=== PATIENT | female | born 1970 | race African-American/Black ===

== ENCOUNTER 2016-08-05 15:52 | Emergency (ER) | payer MEDICARE, OTHER ==
--- NOTE | 2016-08-05 16:21 | PHYS DOC ---
General Chief Complaint: COUGH Stated Complaint: COUGH Time Seen by MD: 15:58 Source: patient Exam Limitations: no limitations Problems: History of Present Illness Initial Comments Pt is 46/F to ED c/o fever and cough. Pt has h/o asthma uses albuterol MDI prn, states for the past 4 days she's had subjective fever, ELIZALDE, myalgias, dry cough, and congestion. Past few days she's had some loose stools as well, no abdominal pain or n/v. No travel/bad food exposure, pt saw her doctor yesterday and advised viral infection which must run its course. Pt states cough kept her up all night, she's hoping for some relief. No cp/focal neurodef/melena/hematochezia. Timing/Duration: getting worse (4 days) Severity: moderate Modifying Factors: improves with medication, worse with movement, improves with rest Associated Symptoms: cough, diaphoresis, fever/chills, headaches, malaise, shortness of breath, other Allergies: Coded Allergies: No Known Drug Allergies (Unverified , 08/05/16) Past Medical History Medical History: other (thyroid, asthma) Surgical History: noncontributory Social History Smoker: non-smoker Alcohol: none Drugs: none Review of Systems Constitutional: see HPI Respiratory: see HPI Cardiovascular: denies chest pain, denies palpitations, denies syncope Gastrointestinal: denies abdominal pain, denies constipation, diarrheadenies nausea, denies vomiting Genitourinary: denies dysuria, denies frequency, denies hematuria Musculoskeletal: denies back pain, denies joint swelling, denies neck pain Psychiatric/Neurological: headachedenies numbness, denies paresthesia, denies weakness Hematologic/Lymphatic: denies blood clots, denies easy bleeding, denies easy bruising Physical Exam General Appearance: no apparent distress, obese Eyes: bilateral eye EOMI, bilateral eye PERRL, bilateral eye normal inspection Ear, Nose, Throat: hearing grossly normal, normal ENT inspection (nose w/ yellow disch, yellow PND), normal pharynx Neck: non-tender, supple Respiratory: chest non-tender, no respiratory distress, decreased breath sounds , other (faint wheeze) Cardiovascular: normal peripheral pulses, regular rate, rhythm Back: no CVA tenderness, no vertebral tenderness Extremities: non-tender, normal inspection, no pedal edema Neurologic/Psychiatric: change of address clerk II-XII nml as tested, no motor/sensory deficits, alert, normal mood/affect, oriented x 3 Skin: normal color, warm/dry Orders, Labs, Meds PATIENT: ANJELICA MCCULLOUGH ACCOUNT: [id number] : 1970 LOCATION: ER AGE: 46 SEX: F EXAM STATUS: REG ER ORD. PHYSICIAN: CANDIS RG DO REASON: fever/cough X'S 4 DAYS PROCEDURE: CHEST PA & LATERAL Chest, 2 views, 08/05/2016: History: Cough, shortness of breath Comparison is made to a study from 03/08/2008. The heart size and pulmonary vascularity are normal. There are multiple calcified mediastinal and left hilar lymph nodes. No pulmonary infiltrate is seen. There is no evidence of pleural fluid. Mild spurring is present in the spine. IMPRESSION: No acute cardiopulmonary abnormality is detected. DICTATED AND SIGNED BY: JARROD CROCKER MD DATE: 08/05/16 1645 CC: CANDIS RG DO; TIESHA GALVAN MD ~ Reassuring workup in ED, pt breathing much better after neb/steroids. Air movement much better, diffuse wheeze. Departure Time of Disposition: 17:25 Disposition: 01 HOME, SELF-CARE Diagnosis: Bronchitis with bronchospasm, asthma Condition: IMPROVED Patient Instructions: Acute Bronchitis, [id number], Asthma, Adult, Easy-to- Read Additional Instructions: Rest, no strenuous activity. Aggressive hydration with gatorade, water. OTC tylenol as needed. Rx: zithromax, prednisone, albuterol, guaif/cod Follow up with your doctor Wednesday for recheck. Return to ED with new or changing symptoms. CANDIS RG DO Aug 05, 2016 16:21
[2016-08-05] MEDS ORDERED: methylPREDNISolone SOD SUCC PF 125 MG/2 ML VIAL. IM ONE (16:30)
[2016-08-05] MEDS ORDERED: IPRATRPIUM/ALBUTEROL 0.5/2.5MG 3 ML NEBU. NEB ONE (16:30)
--- NOTE | 2016-08-05 16:49 | RAD ---
Chest, 2 views, 08/05/2016: History: Cough, shortness of breath Comparison is made to a study from 03/08/2008. The heart size and pulmonary vascularity are normal. There are multiple calcified mediastinal and left hilar lymph nodes. No pulmonary infiltrate is seen. There is no evidence of pleural fluid. Mild spurring is present in the spine. IMPRESSION: No acute cardiopulmonary abnormality is detected.
[2016-08-05] MEDS ORDERED: methylPREDNISolone SOD SUCC PF 125 MG/2 ML VIAL. IV ONE (17:00)
[2016-08-05 17:15] LABS: INFLUENZA A PATIENT NEGATIVE (NEGATIVE); INFLUENZA B PATIENT NEGATIVE (NEGATIVE)
[2016-08-05] MEDS ORDERED: GUAI118L13 PO (17:24)
[2016-08-05] MEDS ORDERED: AZIT250T PO (17:24)
[2016-08-05] MEDS ORDERED: ALBU18HF IH (17:24)
[2016-08-05] MEDS ORDERED: PRED20TA PO (17:24)
[2016-08-05 17:40] VITALS: BP 149/92
== END 2016-08-05 17:40 | disposition home or self-care (01) ==
LOC: ER 15:52
DX: J20.9 Acute bronchitis, unspecified (principal); J45.909 Unspecified asthma, uncomplicated
CPT/HCPCS: 71020; 82947; 87804; 94640; 96374; 99285; J2930; J7620

== ENCOUNTER 2017-01-12 22:17 | Emergency (ER) | payer MEDICARE, OTHER ==
[~2017-01-12] VITALS: Ht 162.6 cm; Wt 123.0 kg
[~2017-01-12 22:17] MED LIST: ALBU18HF IH; AZIT250T PO; GUAI118L13 PO; PRED20TA PO
[2017-01-13 01:09] LABS: CALCIUM 8.9 mg/dL (8.5-10.1); CREATININE 1.1 mg/dL (0.6-1.0); GFR 64.4; POTASSIUM 3.7 mmol/L (3.5-5.1)
[2017-01-13] MEDS ORDERED: HYDROcodone/APAP 5/325MG 1 TAB TABLET PO ONE (01:30)
--- NOTE | 2017-01-13 02:17 | RAD ---
INDICATION: Leg swelling COMPARISON: None. TECHNIQUE: Grayscale, color and doppler ultrasound images were obtained of the right lower extremity venous vasculature. RIGHT: No thrombus identified in the common femoral vein, femoral vein, popliteal vein or visualized calf veins. IMPRESSION: 1. No thrombus identified in deep venous system of right lower extremity. Electronically signed by: Brandon Bentley MD (01/13/2017 2:14 AM) [facility]
[2017-01-13] MEDS ORDERED: HYDR-971 PO (02:59)
--- NOTE | 2017-01-13 02:59 | PHYS DOC ---
Past History Past Medical History: Asthma, Diabetes, Other Past Surgical History: Hysterectomy, Knee Replacement Alcohol Use: Occasionally Drug Use: None Adult General Chief Complaint Chief Complaint: LOWER EXT PAIN HPI HPI Patient is a 46 year old female who presents with right leg pain. The patient reports 2 day history of right calf pain & swelling. Pain worse with ambulation. She denies fevers/chills, rash/skin changes, chest pain, shortness of breath. Denies history of trauma. She has no recent travel, immobilization , surgery. She is a nonsmoker, denies use of hormones. No history of DVT/PE. She does have history of knee replacement. Review of Systems Review of Systems Constitutional: Denies fever or chills HENT: Denies nasal congestion or sore throat Respiratory: Denies cough or shortness of breath Cardiovascular: Denies chest pain GI: Denies abdominal pain, nausea, vomiting Musculoskeletal: Reports calf pain Integument: Denies rash Neurologic: Denies headache Current Medications Current Medications Current Medications Medications (Trade) Dose Ordered Sig/Kennedi Start Time Stop Time Status Last Admin Dose Admin Acetaminophen/ Hydrocodone Bitart (Lortab 5/325) 2 tab 1X ONCE 01/13/17 01:30 01/13/17 01:31 DC 01/13/17 01:30 2 TAB Allergies Allergies Allergies Coded Allergies Type Severity Reaction Last Updated Verified No Known Drug Allergies 08/05/16 No Physical Exam Physical Exam Constitutional: obese, no acute distress, non-toxic appearance. HENT: Normocephalic, atraumatic, bilateral external ears normal, oropharynx moist, nose normal. Eyes: conjunctiva normal, no discharge. Cardiovascular: no edema. Lungs & Thorax: no respiratory distress. Abdomen: nondistended. Skin: Warm, dry, no erythema, no rash. Extremities: right calf tenderness without obvious asymmetrical swelling, no erythema or warmth, dp/pt 2+, sensation intact to foot. no knee or ankle tenderness. Neurologic: Alert and oriented X 3 Current Patient Data Lab Results Laboratory Tests Test 01/13/17 00:20 Sodium Level 142 mmol/L (136-145) Potassium Level 3.7 mmol/L (3.5-5.1) Chloride Level 107 mmol/L (98-107) Carbon Dioxide Level 28 mmol/L (21-32) Anion Gap 7 (6-14) Blood Urea Nitrogen 15 mg/dL (7-20) Creatinine 1.1 mg/dL (0.6-1.0) H Estimated GFR (Cockcroft-Gault) 64.4 Glucose Level 96 mg/dL (70-99) Calcium Level 8.9 mg/dL (8.5-10.1) EKG EKG [] Radiology/Procedures Radiology/Procedures PROCEDURE: VENOUS LOWER EXTREMITY RIGHT INDICATION: Leg swelling COMPARISON: None. TECHNIQUE: Grayscale, color and doppler ultrasound images were obtained of the right lower extremity venous vasculature. RIGHT: No thrombus identified in the common femoral vein, femoral vein, popliteal vein or visualized calf veins. IMPRESSION: 1. No thrombus identified in deep venous system of right lower extremity. Electronically signed by: Lu Bentley MD (01/13/2017 2:14 AM) [facility] DICTATED AND SIGNED BY: LU BENTLEY MD DATE: 01/13/17 0213 [] Course & Med Decision Making Course & Med Decision Making Pertinent Labs and Imaging studies reviewed. (See chart for details) The patient presents with calf pain. Obtained venous US of the affected leg with no evidence of DVT. Electrolytes within normal limits. Recommend rest, heat, ibuprofen. Follow up with primary care physician if not improving in 2-3 days. Come back for chest pain, shortness of breath, cellulitis changes, any otherwise worsening condition. Discharged home in stable condition. [] Dragon Disclaimer Dragon Disclaimer This chart was dictated in whole or in part using Voice Recognition software in a busy, high-work load, and often noisy Emergency Department environment. It may contain unintended and wholly unrecognized errors or omissions. Departure Departure: Impression: Primary Impression: Leg cramps Disposition: 01 HOME, SELF-CARE Condition: STABLE Referrals: KIKE GALINDO MD (PCP) Patient Instructions: Leg Cramps Additional Instructions: You were seen in the emergency department today for leg pain. You do not have a blood clot on the ultrasound test. This may just be muscle cramps. Her electrolytes were normal. Please rest, try to do gentle stretches, apply heating pad, take ibuprofen. If you have severe pain he can take [place]. No drinking alcohol or driving while taking this medication. Call your doctor's office in the morning as they may recommend discontinuing your cholesterol medication. Come back for severe shortness of breath or chest pain, any otherwise worsening condition. Scripts Hydrocodone Bit/Acetaminophen (NORCO 5-325 TABLET) 1 Each Tablet 1-2 TAB PO Q4-6HRS Y for SEVERE PAIN, #6 TAB Prov: WES FARRAR MD 01/13/17 WES FARRAR MD Jan 13, 2017 02:59
[2017-01-13 03:00] VITALS: BP 132/84
--- NOTE | 2017-01-13 04:29 | EKG ---
[address] [address] Test Date: 2017-01-13 Test Time: 00:27:56 Pat Name: ANJELICA MCCULLOUGH Department: Room: Gender: F Delivery Truck Driver: : 1970 Requested By: WES FARRAR Order Number: [id number] Reading MD: Anthony Guido Measurements Intervals [place] Rate: 75 P: 41 SD: 218 QRS: 52 QRSD: 90 T: 24 QT: 380 QTc: 427 Interpretive Statements SINUS RHYTHM PROLONGED SD INTERVAL Electronically Signed On 01-13-2017 11:55:25 CDT by Anthony Guido
== END 2017-01-13 03:10 | disposition home or self-care (01) ==
LOC: ER 22:17
DX: R25.2 Cramp and spasm (principal); M79.604 Pain in right leg; J45.909 Unspecified asthma, uncomplicated; E11.9 Type 2 diabetes mellitus without complications
CPT/HCPCS: 36415; 80048; 93005; 93971; 99285-25

== ENCOUNTER 2018-05-14 13:56 | Emergency (ER) | payer OTHER ==
[~2018-05-14] VITALS: Ht 162.6 cm; Wt 123.0 kg
[~2018-05-14 13:56] MED LIST changes: -ALBU18HF IH; +ALBU2.5V8 IH; +HYDR-3165 PO
[2018-05-14 14:03] VITALS: BP 122/88
[2018-05-14] MEDS ORDERED: ACET-704 PO (14:38)
--- NOTE | 2018-05-14 14:38 | PHYS DOC ---
Past History Past Medical History: Anxiety, Asthma, Diabetes, High Cholesterol, Other Past Surgical History: Hysterectomy, Knee Replacement, Tonsillectomy Alcohol Use: None Drug Use: None Adult General Chief Complaint Chief Complaint: ANKLE PROBLEM HPI HPI Patient is a 48 year old female who presents with complaining of right ankle pain and swelling for 3 weeks that getting worse today. Patient denies injury and states his pain getting force with bearing weight. Patient did not have history of DVT and recent immobilization. Patient states he was seen by his doctor 1 month ago and labs and doesn't want to have any lab tests regarding CHF or DVT and only wants x-ray to make sure she doesn't have fracture. Review of Systems Review of Systems Constitutional: Denies fever or chills [] Eyes: Denies change in visual acuity, redness, or eye pain [] HENT: Denies nasal congestion or sore throat [] Respiratory: Denies cough or shortness of breath [] Cardiovascular: No additional information not addressed in HPI [] GI: Denies abdominal pain, nausea, vomiting, bloody stools or diarrhea [] : Denies dysuria or hematuria [] Musculoskeletal: Denies back pain, reports joint pain [] Integument: Denies rash or skin lesions [] Neurologic: Denies headache, focal weakness or sensory changes [] Endocrine: Denies polyuria or polydipsia [] All other systems were reviewed and found to be within normal limits, except as documented in this note. Allergies Allergies Allergies Coded Allergies Type Severity Reaction Last Updated Verified No Known Drug Allergies 08/05/16 No Physical Exam Physical Exam Constitutional: Well developed, well nourished, no acute distress, non-toxic appearance. [] HENT: Normocephalic, atraumatic Eyes: PERRLA, EOMI, conjunctiva normal, no discharge. [] Neck: Normal range of motion, no tenderness, supple, no stridor. [] Cardiovascular:Heart rate regular rhythm, no murmur [] Lungs & Thorax: Bilateral breath sounds clear to auscultation [] Skin: Warm, dry, no erythema, no rash. [] Back: No tenderness, no CVA tenderness. [] Extremities: Right ankle with mild edema in lateral malleolus without deformity , no calf tenderness or edema or sign of infection Neurologic: Alert and oriented X 3, normal motor function, normal sensory function, no focal deficits noted. [] Psychologic: Affect normal, judgement normal, mood normal. [] Current Patient Data Vital Signs Vital Signs Date Time Temp Pulse Resp B/P (MAP) Pulse Ox O2 Delivery O2 Flow Rate FiO2 05/14/18 14:03 Room Air 05/14/18 14:03 98.1 99 20 96 EKG EKG [] Radiology/Procedures Radiology/[place] [address] IMAGING REPORT Signed PATIENT: ANJELICA MCCULLOUGH ACCOUNT: [id number] : 1970 LOCATION: ER AGE: 48 SEX: F EXAM STATUS: REG ER ORD. PHYSICIAN: DANIELLE MEYER MD REASON: pain PROCEDURE: ANKLE RIGHT 3V EXAM: RIGHT ANKLE 3 VIEWS. HISTORY: Right ankle pain and swelling COMPARISON: None. FINDINGS: Three views of the right ankle are obtained. No acute fractures are identified. There are changes of chronic ligamentous injury at that the tip of the medial malleolus. There is soft tissue swelling laterally greater than anteriorly. There are small plantar and posterior calcaneal spurs. Alignment is normal. Joint spaces are maintained. IMPRESSION: 1. Lateral soft tissue swelling. No fracture. Electronically signed by: Ruddy Reid MD (05/14/2018 3:05 PM) [facility] [place] DICTATED AND SIGNED BY: CARRIE REID MD DATE: 05/14/18 1504 CC: KIKE GALINDO MD; DANIELLE MEYER MD ~ Course & Med Decision Making Course & Med Decision Making Pertinent Imaging studies reviewed. (See chart for details) discharge: I've spoken with the patient and/or caregivers. I've explained the patient's condition, diagnosis and treatment plan based on information available to me at this time. I've answered the patient's and/or caregivers questions and addressed any concerns. The patient and/or caregivers have a good understanding the patient's diagnosis, condition and treatment plan as can be expected at this point. Vital signs have been stabilized. The patient's condition is stable for discharge from the emergency department. The patient will pursue further outpatient evaluation with her primary care provider or other designated consulting physician as outlined in the discharge instructions. Patient and/or caregivers are agreeable to this plan of care and follow-up instructions have been explained in detail. The patient and/or caregivers have received these instructions in written format and expressed understanding of these discharge instructions. The patient and her caregivers are aware that if any significant change in condition or worsening of symptoms should prompt him to immediately return to this of the closest emergency department. If an emergent department is not readily available I would encourage him to call 911. Dragon Disclaimer Dragon Disclaimer This electronic medical record was generated, in whole or in part, using a voice recognition dictation system. Departure Departure: Impression: Primary Impression: Ankle pain, right Disposition: HOME, SELF-CARE (at 1435) Condition: STABLE Referrals: KIKE GALINDO MD (PCP) Patient Instructions: Ankle Pain Additional Instructions: Apply ice on affected area Follow-up with your primary care physician in 3-5 days Return to ER if not getting better Scripts Acetaminophen With Codeine (TYLENOL WITH CODEINE #3 TABLET) 1 Each Tablet 1 TAB PO Q6HRS PRN for PAIN, #12 TAB Prov: DANIELLE MEYER MD 05/14/18 DANIELLE MEYER MD May 14, 2018 14:38
--- NOTE | 2018-05-14 15:09 | RAD ---
EXAM: RIGHT ANKLE 3 VIEWS. HISTORY: Right ankle pain and swelling COMPARISON: None. FINDINGS: Three views of the right ankle are obtained. No acute fractures are identified. There are changes of chronic ligamentous injury at that the tip of the medial malleolus. There is soft tissue swelling laterally greater than anteriorly. There are small plantar and posterior calcaneal spurs. Alignment is normal. Joint spaces are maintained. IMPRESSION: 1. Lateral soft tissue swelling. No fracture. Electronically signed by: Ruddy Reid MD (05/14/2018 3:05 PM) [facility] [place]
== END 2018-05-14 14:45 | disposition home or self-care (01) ==
LOC: ER 13:56
DX: M25.571 Pain in right ankle and joints of right foot (principal); R22.41 Localized swelling, mass and lump, right lower limb; F41.9 Anxiety disorder, unspecified; J45.909 Unspecified asthma, uncomplicated; E11.9 Type 2 diabetes mellitus without complications; E78.00 Pure hypercholesterolemia, unspecified; Z96.659 Presence of unspecified artificial knee joint
CPT/HCPCS: 73610; 99283

== ENCOUNTER 2020-01-15 21:02 | Emergency (ER) | payer OTHER, MEDICAID ==
[~2020-01-15] VITALS: Ht 162.6 cm; Wt 134.0 kg
[~2020-01-15 21:02] MED LIST changes: +ACET-704 PO
[2020-01-15] MEDS ORDERED: LIDOCAINE/PRILOCAINE TOPICAL CREAM 5GM TUBE. TP ONE (21:30)
[2020-01-15] MEDS ORDERED: SMZ/TMP 800/160MG TABLET. PO ONE (22:45)
[2020-01-15] MEDS ORDERED: SULF1TAB24 PO (22:55)
--- NOTE | 2020-01-15 22:56 | PHYS DOC ---
Past History Past Medical History: Anxiety, Asthma, Diabetes, High Cholesterol, Other Past Surgical History: Hysterectomy, Knee Replacement, Tonsillectomy Alcohol Use: None Drug Use: None Adult General Chief Complaint Chief Complaint: SKIN RASH/ABSCESS HPI HPI Patient is a 49-year-old female who presents for right posterior ear abscess. Onset was 1 week ago without any known inciting event or trauma. Nothing known makes better, palpation and manipulation of your make worse. Patient reports dull nonradiating pain behind posterior earlobe that is tender to palpation. Admits history of abscesses in the past but not at this location, no history of MRSA infection. Patient has been applying topical lotions and antibiotic creams without any relief, denies any expressible exudate or drainage. No fever, COVID-19 symptoms, or other constitutional symptoms Review of Systems Review of Systems Fourteen body systems of review of systems have been reviewed. See HPI for pertinent positives and negative responses, other llanes all other systems are negative, non-pertinent or non-contributory Current Medications Current Medications Current Medications Medications (Trade) Dose Ordered Sig/Kennedi Start Time Stop Time Status Last Admin Dose Admin Lidocaine/ Prilocaine (Emla) 1 mark 1X ONCE 01/15/20 21:30 01/15/20 21:31 DC 01/15/20 21:25 1 MARK Trimethoprim/ Sulfamethoxazole (Bactrim Ds) 1 tab 1X ONCE 01/15/20 22:45 01/15/20 22:46 DC Allergies Allergies Allergies Coded Allergies Type Severity Reaction Last Updated Verified No Known Drug Allergies 08/05/16 No Physical Exam Physical Exam Constitutional: Well developed, well nourished, obese, no acute distress, non- toxic appearance. HENT: Normocephalic, atraumatic, posterior right fold of ear with fluctuant, tender, mobile, erythematous abscess with white pustular head, bilateral middle ears unremarkable, oropharynx moist, no oral exudates, nose normal. Eyes: PERRLA, EOMI, conjunctiva normal, no discharge. Neck: Normal range of motion, no tenderness, supple, no stridor. Cardiovascular: Heart rate regular, sinus rhythm, no murmurs rubs or gallops Lungs & Thorax: Bilateral breath sounds clear to auscultation Abdomen: Bowel sounds normal, soft, no tenderness, no masses, no pulsatile masses. Nonsurgical abdomen, no peritoneal signs Skin: Warm, dry, no erythema, no rash. Back: No tenderness, no CVA tenderness. Extremities: No tenderness, no cyanosis, no clubbing, ROM intact, no edema. Neurologic: Alert and oriented X 3, grossly normal motor & sensory function, no focal deficits noted. Psychologic: Affect normal, judgement normal, mood normal. EKG EKG [] Radiology/Procedures Radiology/Procedures [] Course & Med Decision Making Course & Med Decision Making Patient seen on ER evaluation ABCs non-concerning Comprehensive history and physical exam obtained, discussed most likely diagnosis of abscess to posterior right ear Verbal consent obtained to perform incision and drainage, EMLA cream was applied and sat for greater than 45 minutes, site was cleansed and simple incision and drainage performed with copious serosanguineous malodorous discharge expressed Culture and Gram stain of exudate obtained, patient given x1 Bactrim double strength tablet and subsequent prescription with wound care instructions and close instructions to follow-up with primary care physician in upcoming 1 to 10 days time to ensure continued resolution of simple abscess Patient has history of diabetes but denied taking any BRANDON inhibitor's or other potentially nephrotoxic agents or medications that could cause hyperkalemia, I disclosed that Bactrim could have synergistic effects with these medications but in this patient we should be fine Ultimately, strict return precautions were discussed with good understanding by patient, all questions and concerns addressed prior to ER departure in stable condition Dragon Disclaimer Dragon Disclaimer This electronic medical record was generated, in whole or in part, using a voice recognition dictation system. Departure Departure: Impression: Primary Impression: Abscess of right external ear Disposition: HOME/RESIDENCE PRIOR TO ADM Condition: STABLE Referrals: MIGUEL FOLEY MD (PCP) Patient Instructions: Abscess, Care After Additional Instructions: I & D You were evaluated in the Emergency Department for an abscess. Your abscess was incised and drained in the Emergency Department. You should change the dressing every 24 hours. Please keep the areas surrounding the abscess clean and dry. Take the antibiotics prescribed to you in full as directed. Please follow up with your primary care physician as discussed in upcoming 1 to 7 days time for outpatient follow-up Return to the Emergency Department if you experience worsening pain, persistent fevers greater than 100.4, an increase in area of redness, increased tenderness/warmth around the abscess, foul smelling discharge from the abscess, or any other concerning symptoms. Scripts Sulfamethoxazole/Trimethoprim (BACTRIM DS TABLET) 1 Each Tablet 1 TAB PO BID for ABSCESS for 5 Days, #10 TAB 0 Refills Prov: JAZMINE PIKE DO 01/15/20 Justification of Admission: Justification of Admission: Justification of Admission Dx: N/A JAZMINE PIKE DO Jan 15, 2020 22:56
[2020-01-15 23:05] VITALS: BP 130/94
== END 2020-01-15 23:05 | disposition home or self-care (01) ==
LOC: ER 21:02
DX: H60.01 Abscess of right external ear (principal); F41.9 Anxiety disorder, unspecified; J45.909 Unspecified asthma, uncomplicated; E11.9 Type 2 diabetes mellitus without complications; E78.00 Pure hypercholesterolemia, unspecified
CPT/HCPCS: 69000; 87070; 99283

== ENCOUNTER 2021-08-09 16:12 | Emergency (ER) | payer OTHER ==
[~2021-08-09] VITALS: Ht 162.6 cm; Wt 134.0 kg
[~2021-08-09 16:12] MED LIST changes: +SULF1TAB24 PO
[2021-08-09 16:21] VITALS: BP 129/67
[2021-08-09] MEDS ORDERED: AMOX500C PO (17:00)
--- NOTE | 2021-08-09 17:00 | PHYS DOC ---
Past History Past Medical History: Anxiety, Asthma, Diabetes, High Cholesterol, Other Past Surgical History: Hysterectomy, Knee Replacement, Tonsillectomy Alcohol Use: None Drug Use: None General Adult EDM: Chief Complaint: EARACHE/EAR PAIN HPI: HPI: Patient is a 51-year-old female presents with right-sided ear pain for 2 weeks. Patient denies fever. Denies all other symptoms. No medical history. Review of Systems: Review of Systems: ROS At least 10 ROS systems have been reviewed and are negative except as documented in the HPI. General: Negative except as outlined in HPI above. Skin: Negative except as outlined in HPI above. HEENT: Negative except as outlined in HPI above. Neck: Negative except as outlined in HPI above. Respiratory: Negative except as outlined in HPI above.. Cardiovascular: Negative except as outlined in HPI above. Abdomen: Negative except as outlined in HPI above. : Negative except as outlined in HPI above. Back/MSK: Negative except as outlined in HPI above. Neuro: Negative except as outlined in HPI above. Psych: Negative except as outlined in HPI above. Allergies: Allergies: Allergies Coded Allergies Type Severity Reaction Last Updated Verified Svcxoci-OXM-ExG Reductase Inhibitor Allergy Unknown 08/09/21 Yes Physical Exam: PE: Constitutional: Well developed, well nourished, no acute distress, non-toxic appearance. [] HENT: bilateral external ears normal, TM is red and bulging, oropharynx moist, no oral exudates, nose normal. [] Eyes: PERRLA, EOMI, conjunctiva normal, no discharge. [] Neck: Normal range of motion, no tenderness, supple, no stridor. [] Cardiovascular:Heart rate regular rhythm, no murmur [] Lungs & Thorax: Bilateral breath sounds clear to auscultation [] Abdomen: Bowel sounds normal, soft, no tenderness, no masses, no pulsatile masses. [] Skin: Warm, dry, no erythema, no rash. [] Back: No tenderness, no CVA tenderness. [] Extremities: No tenderness, no cyanosis, no clubbing, ROM intact, no edema. [] Neurologic: Alert and oriented X 3, normal motor function, normal sensory function, no focal deficits noted. [] Psychologic: Affect normal, judgement normal, mood normal. [] Current Patient Data: Vital Signs: Vital Signs Date Time Temp Pulse Resp B/P (MAP) Pulse Ox O2 Delivery O2 Flow Rate FiO2 08/09/21 16:21 98.4 92 18 129/67 (87) 96 Room Air EKG: EKG: [] Radiology/Procedures: Radiology/Procedures: [] Heart Score: C/O Chest Pain: No Risk Factors: Risk Factors: DM, Current or recent (<one month) smoker, HTN, HLP, family history of CAD, obesity. Risk Scores: Score 0 - 3: 2.5% MACE over next 6 weeks - Discharge Home Score 4 - 6: 20.3% MACE over next 6 weeks - Admit for Clinical Observation Score 7 - 10: 72.7% MACE over next 6 weeks - Early Invasive Strategies Course & Med Decision Making: Course & Med Decision Making Pertinent Labs and Imaging studies reviewed. (See chart for details) [] 51-year-old female presents with right-sided ear pain for 2 weeks. No fever. Denies all other symptoms. Patient sent home with prescription for AOM. TM is red and bulging. Advised patient to take ibuprofen for discomfort. Follow- up with PCP if symptoms are not resolving. Dragon Disclaimer: Dragon Disclaimer: This electronic medical record was generated, in whole or in part, using a voice recognition dictation system. Departure Departure: Impression: Primary Impression: Acute otitis media Qualified Codes: H66.90 - Otitis media, unspecified, unspecified ear Disposition: HOME / SELF CARE / HOMELESS Condition: STABLE Referrals: MIGUEL FOLEY MD (PCP) Patient Instructions: Otitis Media, Adult, [id number] Additional Instructions: Sending home with a prescription for amoxicillin. Please follow-up with your PCP if symptoms are not improving in 72 hours. Ibuprofen for pain and discomfort. Return to the emergency room with worsening symptoms or concerns. EMERGENCY DEPARTMENT GENERAL DISCHARGE INSTRUCTIONS Thank you for coming to [facility] (ED) today and trusting us with you care. We trust that you had a positivie experience in our Emergency Department. If you wish to speak to the department management, you may call the director at [phone]. YOUR FOLLOW UP INSTRUCTIONS ARE FOLLOWS: 1. Do you have a private Doctor? If you do not have a private doctor, please ask for a resource list of physicians or clinics that may be able to assist you with follow up care. 2. The Emergency Physician has interpreted your x-rays. The X-Ray specialist will also review them. If there is a change in the findings, you will be notified in 48 hours when at all possible. 3. A lab test or culture has been done, your results will be reviewed and you will be notified if you need a change in treatment. ADDITIONAL INSTRUCTIONS AND INFORMATION: 1. Your care today has been supervised by a physician who is specially trained in emergency care. Many problems require more than one evaluation for a complete diagnosis and treatment. We recommend that you schedule your follow up appointment as recommended to ensure complete treatment of you illness or injury. If you are unable to obtain follow up care and continue to have a problem, or if your condition worsens, we recommend that you return to the ED. 2. We are not able to safely determine your condition over the phone nor are we able to give sound medical advice over the phone. For these safety reasons, if you call for medical advice we will ask you to come to the ED for further evaluation. 3. If you have any questions regarding these discharge instructions please call the ED at [phone]. SAFETY INFORMATION: In the interest of safety, wellness, and injury prevention; we encourage you to wear your sealbelt, if you smoke; quite smoking, and we encourage family to use a protective helmet for bicycling and other sporting events that present an increased risk for head injury. IF YOUR SYMPTOMS WORSEN OR NEW SYMPTOMS DEVELOP, OR YOU HAVE CONCERNS ABOUT YOUR CONDITION; OR IF YOUR CONDITION WORSENS WHILE YOU ARE WAITING FOR YOUR FOLLOW UP APPOINTMENT; EITHER CONTACT YOUR PRIMARY CARE DOCTOR, THE PHYSICIAN WHOSE NAME AND NUMBER YOU WERE GIVEN, OR RETURN TO THE ED IMMEDIATELY. Scripts Amoxicillin (AMOXICILLIN) 500 Mg Capsule 1 CAP PO BID for infection for 10 Days, #20 CAP Prov: AYAD OCAMPO CYBERATHLETE 08/09/21 AYAD OCAMPO APRN Aug 09, 2021 17:00
== END 2021-08-09 17:24 | disposition home or self-care (01) ==
LOC: ER 16:12
DX: H66.91 Otitis media, unspecified, right ear (principal); F41.9 Anxiety disorder, unspecified; J45.909 Unspecified asthma, uncomplicated; E11.9 Type 2 diabetes mellitus without complications; E78.00 Pure hypercholesterolemia, unspecified; Z88.8 Allergy status to other drugs, medicaments and biological substances
CPT/HCPCS: 99283